=== PATIENT | female | born 1935 | race Caucasian/White ===

== ENCOUNTER 2018-10-26 10:20 | Inpatient (IN) | payer MEDICARE, OTHER ==
[2018-10-26] MEDS: SOD CHLORIDE 0.9% 1,000 ML IV (10:32)
[2018-10-26 10:39] LABS: ADD MAN DIFF? NO
[2018-10-26 10:42] LABS: BASOPHIL # 0.1 10^3/ul (0.0-0.1); BASOPHILS % 0.7 % (0.0-2.0); EOSINOPHILS # 0.2 10^3/ul (0.0-0.5); EOSINOPHILS % 1.7 % (0.0-7.0); HEMATOCRIT 33.9 % (37.0-47.0); HEMOGLOBIN 11.4 g/dl (12.0-16.0); LYMPHOCYTES # 2.9 10^3/ul (0.8-2.9); LYMPHOCYTES % 32.1 % (15.0-51.0); MEAN CORPUSCULAR HEMOGLOBIN 28.7 pg (29.0-33.0); MEAN CORPUSCULAR HGB CONC 33.6 g/dl (32.0-37.0); MEAN CORPUSCULAR VOLUME 85.4 fl (82.0-101.0); MEAN PLATELET VOLUME 9.7 fl (7.4-10.4); MONOCYTE # 0.9 10^3/ul (0.3-0.9); MONOCYTES % 9.8 % (0.0-11.0); NEUTROPHIL # 4.9 10^3/ul (1.6-7.5); NEUTROPHILS % 55.3 % (39.0-77.0); PLATELET COUNT 386 10^3/UL (140-415); RED BLOOD COUNT 3.97 10^6/ul (4.20-5.40); RED CELL DISTRIBUTION WIDTH 13.8 % (11.5-14.5)
[2018-10-26 10:42] LABS: WHITE BLOOD COUNT 8.9 10^3/ul (4.8-10.8)
[2018-10-26 11:03] LABS: ALANINE AMINOTRANSFERASE 8 IU/L (13-69); ALBUMIN 4.4 g/dl (3.3-4.9); ALBUMIN/GLOBULIN RATIO 1.12; ALKALINE PHOSPHATASE 60 IU/L (42-121); ANION GAP 15 (5-13); ASPARTATE AMINO TRANSFERASE 21 IU/L (15-46); BLOOD UREA NITROGEN 26 mg/dl (7-20); CARBON DIOXIDE 21 mmol/L (21-31); CHLORIDE 96 mmol/L (97-110); CREATININE 1.72 mg/dl (0.44-1.00); GLUCOSE 186 mg/dl (70-220); POTASSIUM 5.3 mmol/L (3.5-5.1); SODIUM 132 mmol/L (135-144); TOTAL PROTEIN 8.3 g/dl (6.1-8.1)
[2018-10-26 11:15] LABS: TROPONIN-I 0.023 ng/ml (0.000-0.120)
[2018-10-26 11:20] LABS: FREE THYROXINE INDEX (Calc) 3.28 ug/ml (0.65-3.89); T3 UPTAKE 36.9 % (23.5-40.5); T4 (THYROXINE) 8.9 ug/dl (5.5-11.0)
[2018-10-26 12:21] LABS: ADD UMIC YES; UR ASCORBIC ACID NEGATIVE (NEGATIVE); UR BACTERIA MODERATE /HPF (NONE SEEN); UR BILIRUBIN (Dip) NEGATIVE (NEGATIVE); UR BLOOD (Dip) 3+ mg/dL (NEGATIVE); UR BUDDING YEAST FEW /HPF (NONE SEEN); UR CLARITY CLOUDY (CLEAR); UR COLOR RED (YELLOW); UR GLUCOSE (Dip) 3+ mg/dL (NEGATIVE); UR KETONES (Dip) NEGATIVE (NEGATIVE); UR LEUKOCYTE ESTERASE (Dip) 3+ Leu/ul (NEGATIVE); UR MUCUS FEW /HPF (NONE SEEN); UR NITRITE (Dip) NEGATIVE (NEGATIVE); UR RBC 4 /HPF (0-5); UR SPECIFIC GRAVITY (Dip) 1.009 (1.003-1.030); UR SQUAMOUS EPITHELIAL CELL MODERATE /HPF (FEW); UR TOTAL PROTEIN (Dip) 2+ mg/dl (NEGATIVE); UR UROBILINOGEN (Dip) NEGATIVE (NEGATIVE); UR WBC > 182 /HPF (0-5)
[2018-10-26] MEDS: CEFTRIAXONE 1 GM/50 ML (PMX) 50 ML IVPB ×2 (12:40→21:49)
[2018-10-26] MEDS ORDERED: ACETAMINOPHEN 325 MG TAB PO (14:00)
[2018-10-26] MEDS ORDERED: ONDANSETRON 4 MG INJ IV (14:00)
[2018-10-26] MEDS ORDERED: GLUCAGON 1 MG INJ IM (18:30)
[2018-10-26] MEDS ORDERED: GLUCOSE GEL 15 GRAM TUBE BUCCAL (18:30)
[2018-10-26] MEDS ORDERED: GLUCOSE GEL 15 GRAM TUBE PO ×2 (18:30)
[2018-10-26] MEDS ORDERED: ACETAMINOPHEN 500 MG TAB PO (18:30)
[2018-10-26] MEDS ORDERED: DEXTROSE 50% 50 ML SYRINGE IV ×2 (18:30)
[2018-10-26] MEDS: SOD CHLORIDE 0.45% 1,000 ML IV (19:07)
[2018-10-26] MEDS: FAMOTIDINE 20 MG TAB PO (20:46)
[2018-10-26] MEDS: FERROUS SULFATE (EC) 325 MG TAB PO (20:46)
[2018-10-26] MEDS: INSULIN ASPART [NOVOLOG] 3 ML PEN SC (20:46)
[2018-10-27] MEDS: ACCU-CHEK XX (02:00)
[2018-10-27] MEDS: OLANZAPINE 2.5 MG TAB PO (08:41)
[2018-10-27] MEDS: METOPROLOL (XL) 50 MG TAB PO (08:41)
[2018-10-27] MEDS: INSULIN ASPART [NOVOLOG] 3 ML PEN SC ×4 (08:42→20:42)
[2018-10-27] MEDS: ESCITALOPRAM 10 MG TAB PO (08:42)
[2018-10-27] MEDS: FERROUS SULFATE (EC) 325 MG TAB PO ×2 (08:42→20:35)
[2018-10-27] MEDS: AMLODIPINE 5 MG TAB PO (08:42)
[2018-10-27] MEDS: LOSARTAN 50 MG TAB PO (08:42)
[2018-10-27] MEDS: INFLUENZA VIRUS VACCINE 0.5 ML (DISPENSING) IM* (09:00)
[2018-10-27] MEDS: SOD CHLORIDE 0.45% 1,000 ML IV (14:30)
[2018-10-27] MEDS: CEFTRIAXONE 1 GM/50 ML (PMX) 50 ML IVPB (17:56)
[2018-10-27] MEDS: FAMOTIDINE 20 MG TAB PO (20:35)
[2018-10-27] MEDS: LORAZEPAM 0.5 MG TAB PO (20:35)
[2018-10-28] MEDS: ACCU-CHEK XX (02:37)
[2018-10-28 06:50] LABS: ADD MAN DIFF? NO
[2018-10-28 06:52] LABS: WHITE BLOOD COUNT 10.6 10^3/ul (4.8-10.8)
[2018-10-28 06:52] LABS: BASOPHIL # 0.1 10^3/ul (0.0-0.1); BASOPHILS % 0.8 % (0.0-2.0); EOSINOPHILS # 0.3 10^3/ul (0.0-0.5); EOSINOPHILS % 2.8 % (0.0-7.0); HEMATOCRIT 33.9 % (37.0-47.0); HEMOGLOBIN 11.2 g/dl (12.0-16.0); LYMPHOCYTES # 4.3 10^3/ul (0.8-2.9); LYMPHOCYTES % 40.1 % (15.0-51.0); MEAN CORPUSCULAR HEMOGLOBIN 28.1 pg (29.0-33.0); MEAN PLATELET VOLUME 9.9 fl (7.4-10.4); MONOCYTES % 9.7 % (0.0-11.0); NEUTROPHIL # 4.9 10^3/ul (1.6-7.5); NEUTROPHILS % 46.1 % (39.0-77.0); PLATELET COUNT 394 10^3/UL (140-415); RED BLOOD COUNT 3.99 10^6/ul (4.20-5.40); RED CELL DISTRIBUTION WIDTH 14.3 % (11.5-14.5)
[2018-10-28 07:17] LABS: B-TYPE NATRIURETIC PEPTIDE 1470 PG/ML (0-450)
[2018-10-28 07:24] LABS: ANION GAP 11 (5-13); BLOOD UREA NITROGEN 25 mg/dl (7-20); CALCIUM 9.4 mg/dl (8.4-10.2); CARBON DIOXIDE 20 mmol/L (21-31); CHLORIDE 105 mmol/L (97-110); CREATININE 1.66 mg/dl (0.44-1.00); GLUCOSE 154 mg/dl (70-220); POTASSIUM 4.3 mmol/L (3.5-5.1); SODIUM 136 mmol/L (135-144)
[2018-10-28] MEDS: INSULIN ASPART [NOVOLOG] 3 ML PEN SC ×4 (08:00→20:18)
[2018-10-28] MEDS: METOPROLOL (XL) 50 MG TAB PO (08:39)
[2018-10-28] MEDS: ESCITALOPRAM 10 MG TAB PO (08:40)
[2018-10-28] MEDS: AMLODIPINE 5 MG TAB PO (08:40)
[2018-10-28] MEDS: FERROUS SULFATE (EC) 325 MG TAB PO ×2 (08:40→20:18)
[2018-10-28] MEDS: LOSARTAN 50 MG TAB PO (08:40)
[2018-10-28] MEDS: OLANZAPINE 2.5 MG TAB PO (09:21)
[2018-10-28] MEDS ORDERED: VANCOMYCIN IV PER PHARMACY XX (10:30)
[2018-10-28] MEDS: SOD CHLORIDE 0.45% 1,000 ML IV ×2 (10:30→15:46)
[2018-10-28] MEDS: HYDROCODONE/APAP (5/325) TAB PO (15:07)
[2018-10-28] MEDS: CEFTRIAXONE 1 GM/50 ML (PMX) 50 ML IVPB (17:42)
[2018-10-28] MEDS: FAMOTIDINE 20 MG TAB PO (20:22)
[2018-10-28] MEDS: LORAZEPAM 2 MG INJ IV (20:45)
[2018-10-29] MEDS: ACCU-CHEK XX (02:42)
[2018-10-29] MEDS: LORAZEPAM 2 MG INJ IV (02:55)
[2018-10-29 07:24] LABS: ADD MAN DIFF? NO
[2018-10-29 07:29] LABS: BASOPHIL # 0.1 10^3/ul (0.0-0.1); BASOPHILS % 0.6 % (0.0-2.0); EOSINOPHILS # 0.4 10^3/ul (0.0-0.5); EOSINOPHILS % 3.1 % (0.0-7.0); HEMATOCRIT 37.1 % (37.0-47.0); HEMOGLOBIN 12.3 g/dl (12.0-16.0); LYMPHOCYTES % 31.6 % (15.0-51.0); MEAN CORPUSCULAR HEMOGLOBIN 28.9 pg (29.0-33.0); MEAN CORPUSCULAR HGB CONC 33.2 g/dl (32.0-37.0); MEAN CORPUSCULAR VOLUME 87.1 fl (82.0-101.0); MEAN PLATELET VOLUME 9.7 fl (7.4-10.4); NEUTROPHIL # 7.1 10^3/ul (1.6-7.5); NEUTROPHILS % 55.8 % (39.0-77.0); PLATELET COUNT 416 10^3/UL (140-415); RED BLOOD COUNT 4.26 10^6/ul (4.20-5.40)
[2018-10-29 07:29] LABS: WHITE BLOOD COUNT 12.6 10^3/ul (4.8-10.8)
[2018-10-29 07:54] LABS: ANION GAP 12 (5-13); BLOOD UREA NITROGEN 21 mg/dl (7-20); CALCIUM 9.1 mg/dl (8.4-10.2); CARBON DIOXIDE 21 mmol/L (21-31); CHLORIDE 101 mmol/L (97-110); CREATININE 1.33 mg/dl (0.44-1.00); GLUCOSE 167 mg/dl (70-220); POTASSIUM 4.5 mmol/L (3.5-5.1); SODIUM 134 mmol/L (135-144)
[2018-10-29 07:56] LABS: B-TYPE NATRIURETIC PEPTIDE 1110 PG/ML (0-450)
[2018-10-29] MEDS: INSULIN ASPART [NOVOLOG] 3 ML PEN SC ×3 (08:59→17:34)
[2018-10-29] MEDS: AMLODIPINE 5 MG TAB PO ×2 (09:00→10:24)
[2018-10-29] MEDS: FERROUS SULFATE (EC) 325 MG TAB PO ×2 (09:00→10:23)
[2018-10-29] MEDS: OLANZAPINE 2.5 MG TAB PO ×2 (09:00→10:24)
[2018-10-29] MEDS: LOSARTAN 50 MG TAB PO ×2 (09:00→10:25)
[2018-10-29] MEDS: ESCITALOPRAM 10 MG TAB PO ×2 (09:00→10:23)
[2018-10-29] MEDS: METOPROLOL (XL) 50 MG TAB PO ×2 (09:00→10:24)
[2018-10-29] MEDS: CEFTRIAXONE 1 GM/50 ML (PMX) 50 ML IVPB (17:34)
== END 2018-10-29 20:10 | DRG 683 ==
LOC: 5EC 10-28 23:00 → E/R 10:20 → 5EC 13:37
DX: N17.9 Acute kidney failure, unspecified (principal); N39.0 Urinary tract infection, site not specified; Z68.1 Body mass index [BMI] 19.9 or less, adult; G93.40 Encephalopathy, unspecified; E11.65 Type 2 diabetes mellitus with hyperglycemia; E86.0 Dehydration; N31.9 Neuromuscular dysfunction of bladder, unspecified; G30.9 Alzheimer's disease, unspecified; F02.80 Dementia in other diseases classified elsewhere, unspecified severity, without behavioral disturbance, psychotic disturbance, mood disturbance, and anxiety; I10 Essential (primary) hypertension; K21.9 Gastro-esophageal reflux disease without esophagitis; R26.89 Other abnormalities of gait and mobility; B95.1 Streptococcus, group B, as the cause of diseases classified elsewhere; M19.90 Unspecified osteoarthritis, unspecified site; Z79.4 Long term (current) use of insulin; Z79.02 Long term (current) use of antithrombotics/antiplatelets; Z91.81 History of falling
CPT/HCPCS: 36415; 70450; 71045; 80048; 80053; 81001; 82962; 83880; 84436; 84479; 84484; 85025; 87086; 87400; 90686; 93005; 96374; 97161; 99285-25